=== PATIENT | male | born 1960 | race Caucasian/White ===

== ENCOUNTER → 2019-06-01 | Outpatient (CLI) | payer BC ==
--- NOTE | 2019-06-01 13:14 | CT ---
EXAMINATION TYPE: CT iac wo con DATE OF EXAM: 06/01/2019 COMPARISON: NONE HISTORY: Ear ringing x 10 months. Right-sided hearing loss and left-sided tinnitus. CT DLP: 312 mGycm. Automated Exposure Control for Dose Reduction was Utilized. TECHNIQUE: CT scan of internal auditory canal is performed without contrast, thin cut axial images ar e obtained, coronal reformatted images are also reviewed. FINDINGS: There is density seen in Prussak's space on the right and some blunting of the scutum. The ossicles appear intact. This density is seen on series 8 image 33. The right tympanic membrane is sli ghtly thicker than the left. There is some sclerosis of the right mastoid air cells in comparison to the left with no air-fluid level seen. There is opacification of the inferior right mastoid air cells . The external auditory canals are patent bilaterally. There is no evidence of suspicious surrounding soft tissue density to suggest cholesteatoma on the left. The scutum is preserved on the left. The cochlea and the semicircular canals are symmetric and unremarkable bilaterally. Vestibular aqueduct and internal carotid canal appear unremarkable bilaterally. Temporomandibular joints are maintained bilaterally. Visualized paranasal sinuses are grossly clear. Visualized portion brain parenchyma is felt within normal limits. IMPRESSION: 1. 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 2. Density percent space on the right suggesting a small cholesteatoma with blunting of the scutum. 3. No CT findings in the left internal auditory canal to correspond with the patient's left-sided tin nitus. 4. Thickening of the right tympanic membrane comparison left typically is secondary to chronic inflam matory process or recurrent otitis.
== END | disposition home or self-care (01) ==
LOC: RADCTMAIN 10:53
PROVIDERS: ATTEND Otolaryngology
DX: H73.891 Other specified disorders of tympanic membrane, right ear (principal)
CPT/HCPCS: 70480

== ENCOUNTER 2020-11-05 18:40 | Observation (INO) | payer BC ==
[2020-11-05] MEDS ORDERED: NITROGLYCERIN OINT 1 INCH/GM PACKET TOPICAL STA (19:03)
[2020-11-05] MEDS ORDERED: ASPIRIN 81 MG PO STA (19:03)
--- NOTE | 2020-11-05 19:06 | ED ---
General Adult HPI - General Chief complaint: Chest Pain Stated complaint: Chest Pain Time Seen by Provider: 11/05/20 18:53 Source: patient, RN notes reviewed Mode of arrival: ambulatory Limitations: no limitations - History of Present Illness Initial comments: Patient is a pleasant 60-year-old male presenting to the emergency Department with complaints of chest discomfort. Onset of symptoms was earlier today. Patient has discomfort on the right chest and also some discomfort in the area between the shoulder and neck. Discomfort does increase somewhat with arm movement. No dyspnea. No worsening symptoms with deep breaths. No nausea. No history of similar symptoms previously. - Related Data Home Medications Medication Instructions Recorded Confirmed Levothyroxine Sodium [Synthroid] 112 mcg PO DAILY 11/05/20 11/05/20 Nortriptyline [Pamelor] 50 mg PO HS 11/05/20 11/05/20 Rosuvastatin Calcium [Crestor] 40 mg PO HS 11/05/20 11/05/20 SUMAtriptan SUCCINATE [Imitrex] 100 mg PO BID PRN 11/05/20 11/05/20 Topiramate [Topamax] 50 mg PO BID 11/05/20 11/05/20 Allergies Allergy/AdvReac Type Severity Reaction Status Date / Time No Known Allergies Allergy Verified 11/05/20 20:04 Review of Systems ROS Statement: Those systems with pertinent positive or pertinent negative responses have been documented in the HPI. ROS Other: All systems not noted in ROS Statement are negative. Constitutional: Denies: fever Eyes: Denies: eye pain ENT: Denies: ear pain Respiratory: Denies: cough, dyspnea Cardiovascular: Reports: as per HPI, chest pain Endocrine: Denies: fatigue Gastrointestinal: Denies: abdominal pain Genitourinary: Denies: dysuria Musculoskeletal: Denies: back pain Skin: Denies: rash Neurological: Denies: weakness Past Medical History Past Medical History: Hyperlipidemia, Hypertension History of Any Multi-Drug Resistant Organisms: None Reported Past Surgical History: Orthopedic Surgery Additional Past Surgical History / Comment(s): Left knee replacement Past Psychological History: No Psychological Hx Reported Smoking Status: Former smoker Past Alcohol Use History: None Reported Past Drug Use History: None Reported General Exam Limitations: no limitations General appearance: alert, in no apparent distress Head exam: Present: normocephalic Eye exam: Present: normal appearance Neck exam: Present: normal inspection. Absent: tenderness Respiratory exam: Present: normal lung sounds bilaterally. Absent: chest wall tenderness Cardiovascular Exam: Present: regular rate, normal rhythm Expanded Peripheral pulses: 2+: Radial (R), Radial (L), Posterior Tibialis (R), Posterior Tibialis (L), Dorsalis Pedis (R), Dorsalis Pedis (L) GI/Abdominal exam: Present: soft. Absent: tenderness Extremities exam: Present: normal inspection. Absent: pedal edema, calf tenderness Neurological exam: Present: alert Psychiatric exam: Present: normal affect, normal mood Skin exam: Present: normal color Course Vital Signs 11/05/20 11/05/20 18:44 19:40 Temperature 98.0 F Pulse Rate 87 67 Respiratory 17 18 Rate Blood Pressure 123/80 110/78 O2 Sat by Pulse 97 100 Oximetry EKG Findings - EKG Comments: EKG Findings:: Normal sinus rhythm at a rate of 72. DC 180. QRS 96. QT 372. QTC 407. Normal axis. Incomplete right bundle-branch block. No acute ST change. Medical Decision Making - Medical Decision Making Patient reevaluated and updated. Case was discussed with Dr. champion, who will admit covering hospital call. - Lab Data Result diagrams: 11/05/20 19:40 11/05/20 19:40 Lab Results 11/05/20 11/05/20 11/05/20 Range/Units 19:40 19:40 19:40 WBC 6.8 (3.8-10.6) k/uL RBC 4.90 (4.30-5.90) m/uL Hgb 14.6 (13.0-17.5) gm/dL Hct 44.4 (39.0-53.0) % MCV 90.6 (80.0-100.0) fL MCH 29.7 (25.0-35.0) pg MCHC 32.8 (31.0-37.0) g/dL RDW 12.9 (11.5-15.5) % Plt Count 235 (150-450) k/uL MPV 7.6 Neutrophils % 62 % Lymphocytes % 24 % Monocytes % 9 % Eosinophils % 3 % Basophils % 0 % Neutrophils # 4.2 (1.3-7.7) k/uL Lymphocytes # 1.7 (1.0-4.8) k/uL Monocytes # 0.6 (0-1.0) k/uL Eosinophils # 0.2 (0-0.7) k/uL Basophils # 0.0 (0-0.2) k/uL PT 10.4 (9.0-12.0) sec INR 1.0 (<1.2) APTT 23.9 (22.0-30.0) sec D-Dimer 0.58 (<0.60) mg/L FEU Sodium 141 (137-145) mmol/L Potassium 4.5 (3.5-5.1) mmol/L Chloride 109 H (98-107) mmol/L Carbon Dioxide 24 (22-30) mmol/L Anion Gap 8 mmol/L BUN 24 H (9-20) mg/dL Creatinine 1.23 (0.66-1.25) mg/dL Est GFR (CKD-EPI)AfAm 73 (>60 ml/min/1.73 sqM) Est GFR (CKD-EPI)NonAf 63 (>60 ml/min/1.73 sqM) Glucose 86 (74-99) mg/dL Calcium 9.3 (8.4-10.2) mg/dL Magnesium 2.1 (1.6-2.3) mg/dL Total Bilirubin 0.3 (0.2-1.3) mg/dL AST 27 (17-59) U/L ALT 31 (4-49) U/L Alkaline Phosphatase 58 (38-126) U/L Troponin I (0.000-0.034) ng/mL Total Protein 6.8 (6.3-8.2) g/dL Albumin 4.1 (3.5-5.0) g/dL 11/05/20 Range/Units 19:40 WBC (3.8-10.6) k/uL RBC (4.30-5.90) m/uL Hgb (13.0-17.5) gm/dL Hct (39.0-53.0) % MCV (80.0-100.0) fL MCH (25.0-35.0) pg MCHC (31.0-37.0) g/dL RDW (11.5-15.5) % Plt Count (150-450) k/uL MPV Neutrophils % % Lymphocytes % % Monocytes % % Eosinophils % % Basophils % % Neutrophils # (1.3-7.7) k/uL Lymphocytes # (1.0-4.8) k/uL Monocytes # (0-1.0) k/uL Eosinophils # (0-0.7) k/uL Basophils # (0-0.2) k/uL PT (9.0-12.0) sec INR (<1.2) APTT (22.0-30.0) sec D-Dimer (<0.60) mg/L FEU Sodium (137-145) mmol/L Potassium (3.5-5.1) mmol/L Chloride (98-107) mmol/L Carbon Dioxide (22-30) mmol/L Anion Gap mmol/L BUN (9-20) mg/dL Creatinine (0.66-1.25) mg/dL Est GFR (CKD-EPI)AfAm (>60 ml/min/1.73 sqM) Est GFR (CKD-EPI)NonAf (>60 ml/min/1.73 sqM) Glucose (74-99) mg/dL Calcium (8.4-10.2) mg/dL Magnesium (1.6-2.3) mg/dL Total Bilirubin (0.2-1.3) mg/dL AST (17-59) U/L ALT (4-49) U/L Alkaline Phosphatase (38-126) U/L Troponin I <0.012 (0.000-0.034) ng/mL Total Protein (6.3-8.2) g/dL Albumin (3.5-5.0) g/dL Disposition Clinical Impression: Chest pain Disposition: ADMITTED IP TO THIS [facility] Is patient prescribed a controlled substance at d/c from ED?: No Referrals: Savannah Fitch CRNP [Family Provider] - 1-2 days Decision Time: 20:55
[2020-11-05 19:50] LABS: Basophils % (A) 0 %; Eosinophils # (A) 0.2 k/uL (0-0.7); Eosinophils % (A) 3 %; HCT 44.4 % (39.0-53.0); HGB 14.6 gm/dL (13.0-17.5); Lymphocytes # (A) 1.7 k/uL (1.0-4.8); Lymphocytes % (A) 24 %; MCH 29.7 pg (25.0-35.0); MCHC 32.8 g/dL (31.0-37.0); MCV 90.6 fL (80.0-100.0); Mean Platelet Volume 7.6; Monocytes # (A) 0.6 k/uL (0-1.0); Monocytes % (A) 9 %; Neutrophils # (A) 4.2 k/uL (1.3-7.7); Neutrophils % (A) 62 %; Platelet Count 235 k/uL (150-450); RDW 12.9 % (11.5-15.5); WBC 6.8 k/uL (3.8-10.6)
--- NOTE | 2020-11-05 19:52 | XR ---
EXAMINATION TYPE: XR chest 2V DATE OF EXAM: 11/05/2020 COMPARISON: NONE HISTORY: Chest pain TECHNIQUE: 2 views FINDINGS: Heart is normal. Lungs are clear of infiltrate. There is no heart failure. There are no hil ar masses. Bony thorax is intact. IMPRESSION: No active cardiopulmonary disease. Atheromatous aorta.
[2020-11-05 19:56] LABS: Albumin 4.1 g/dL (3.5-5.0); Calcium 9.3 mg/dL (8.4-10.2); Magnesium 2.1 mg/dL (1.6-2.3); Potassium 4.5 mmol/L (3.5-5.1); Total Bilirubin 0.3 mg/dL (0.2-1.3); Total Protein 6.8 g/dL (6.3-8.2)
[2020-11-05 20:10] LABS: D-Dimer 0.58 mg/L FEU (<0.60); Partial Thromboplastin Time 23.9 sec (22.0-30.0); Prothrombin Time 10.4 sec (9.0-12.0)
[2020-11-05] MEDS ORDERED: NITROGLYCERIN SL TABS 0.4 MG TAB SUBLINGUAL PRN (20:56)
--- NOTE | 2020-11-05 22:05 | P.HPIM ---
History of Present Illness H&P Date: 11/05/20 Patient is a 60 -year-old male with a PMH of hyperlipidemia and hypothyroidism who presented to the emergency room with complaints of chest pain. The patient reports that he was in his usual state of health until is morning when he suddenly developed a right-sided sharp and pressure-like discomfort. The pain was somewhat intermittent, exacerbated with right arm movements or activity, starting in the neck and the right chest with radiation to the substernal region, 8 out of 10 at maximum intensity, and relieved by rest. The patient denied associated shortness of breath, palpitations, nausea, vomiting, diaphoresis, dizziness. He also denied prolonged immobilization, recent travel, leg pain, or leg swelling. He reported at the time of interview that laying perfectly still the pain is a 1 out of 10 and is brought on again with any right arm movement. He denied additional complaints. Denied abdominal pain, fever, chills, cough, diarrhea. In the emergency room, laboratory evaluation revealed a troponin less than 0.012, EKG revealing normal sinus rhythm at 72 bpm with an incomplete right bundle branch block, with chest x-ray showing an atheromatous aorta. Review of Systems Pertinent positives and negatives as discussed in HPI, a complete review of sys tems was performed and all other systems are negative. Past Medical History Past Medical History: Hyperlipidemia, Hypertension History of Any Multi-Drug Resistant Organisms: None Reported Past Surgical History: Orthopedic Surgery Additional Past Surgical History / Comment(s): Left knee replacement Past Psychological History: No Psychological Hx Reported Smoking Status: Former smoker Past Alcohol Use History: None Reported Past Drug Use History: None Reported Medications and Allergies Home Medications Medication Instructions Recorded Confirmed Type Levothyroxine Sodium [Synthroid] 112 mcg PO DAILY 11/05/20 11/05/20 History Nortriptyline [Pamelor] 50 mg PO HS 11/05/20 11/05/20 History Rosuvastatin Calcium [Crestor] 40 mg PO HS 11/05/20 11/05/20 History SUMAtriptan SUCCINATE [Imitrex] 100 mg PO BID PRN 11/05/20 11/05/20 History Topiramate [Topamax] 50 mg PO BID 11/05/20 11/05/20 History Allergies Allergy/AdvReac Type Severity Reaction Status Date / Time No Known Allergies Allergy Verified 11/05/20 20:04 Physical Exam Vitals: Vital Signs Temp Pulse Resp BP Pulse Ox 11/05/20 19:40 67 18 110/78 100 11/05/20 18:44 98.0 F 87 17 123/80 97 Intake and Output 11/05/20 11/05/20 11/05/20 06:59 14:59 22:59 Other: Weight 108.862 kg General: non toxic, no distress, appears at stated age, normal weight Derm: no unusual rashes/lesions no unusual ecchymoses, warm, dry Head: atraumatic, normocephalic, symmetric Eyes: EOMI, no lid lag, anicteric sclera, pupils equal round reactive to light ENT: Nose and ears atraumatic, no thrush, no pharyngeal erythema Neck: No thyromegaly, no cervical lymphadenopathy, trachea midline, supple Mouth: no lip lesion, mucus membranes moist Cardiovascular: S1S2 reg, no murmur, positive posterior tibial pulse bilateral, no edema, capillary refill less than 2 seconds, no chest wall tenderness on palpation Lungs: CTA bilateral, no rhonchi, no rales , no accessory muscle use Abdominal: soft, nontender to palpation, no guarding, no appreciable organomegaly, normal bowel sounds Ext: no gross muscle atrophy, muscle strength 5 out of 5 in all 4 extremities grossly, no contractures, Neuro: CN II-XI grossly intact, light touch intact all 4 extremities, finger to nose within normal limits, Psych: Alert, oriented, appropriate affect Results CBC & Chem 7: 11/05/20 19:40 11/05/20 19:40 Labs: Abnormal Lab Results - Last 24 Hours (Table) 11/05/20 Range/Units 19:40 Chloride 109 H (98-107) mmol/L BUN 24 H (9-20) mg/dL Assessment and Plan Plan: Atypical chest pain with typical features -Cardiac consult -Trend troponin -Cardiac monitoring -Continue with aspirin Chronic conditions: Hypothyroidism, hyperlipidemia -Continue with home meds DVT prophylaxis -Heparin subq The patient is admitted with an anticipated less than 2 midnight stay for evaluation of chest pain CODE STATUS: full code Discussed with: patient Anticipated discharge date: in am Anticipated discharge place: home A total of 35 minutes was spent on the care of this complex patient more than 50% of the time was spent in counseling and care coordination.
[2020-11-05] MEDS: NITROGLYCERIN OINT 1 INCH/GM PACKET TOPICAL SCH (23:12)
[2020-11-06] MEDS ORDERED: SUMAtriptan succinate 50 MG TAB PO PRN (00:52)
[2020-11-06 03:14] LABS: Cholesterol 135 mg/dL (<200); HDL Cholesterol 36 mg/dL (40-60); LDL Cholesterol,Calculated 75 mg/dL (0-99); Triglycerides 122 mg/dL (<150)
[2020-11-06] MEDS: NITROGLYCERIN OINT 1 INCH/GM PACKET TOPICAL SCH (05:32)
[2020-11-06] MEDS ORDERED: LEVOTHYROXINE 112 MCG TAB PO SCH (06:30)
[2020-11-06] MEDS ORDERED: HEPARIN SODIUM,PORCINE/PF 5,000 UNIT/0.5 ML SYRINGE SQ SCH (08:00)
--- NOTE | 2020-11-06 08:25 | CONS ---
CONSULTATION Mr. Mcdonough is a 60-year-old male with a history of hyperlipidemia, who presented to the emergency room with symptoms of right-sided chest discomfort and right shoulder discomfort. The discomfort started yesterday and persisted throughout the day. It has some reproducible pattern by certain position of the shoulder. He had no significant associated dyspnea and no exertional pattern to the symptoms. He had no dizziness or palpitation. The patient has no prior cardiac history. He is average in his exercise tolerance and has no symptoms. He has occasional peripheral edema, but no PND nor orthopnea. His coronary risk factors are remarkable for hyperlipidemia. He is nondiabetic. No history of documented hypertension. He has stopped smoking over 20 years ago. MEDICATIONS: His medications at home included Topamax, Imitrex, Crestor 40 mg daily, Pamelor 50 mg daily and levothyroxine. REVIEW OF SYSTEMS: RESPIRATORY SYSTEM: He has no documented history of asthma, emphysema or bronchitis. GI SYSTEM: No recent GI bleeding. No peptic ulcer disease. SYSTEM: No dysuria or hematuria. NERVOUS SYSTEM: No stroke or seizure. PHYSICAL EXAMINATION: A 60-year-old male, alert, oriented, in no apparent distress. Blood pressure 125/80 with the heart rate in the 60s. HEAD: Normocephalic. EYES: Sclerae nonicteric. NECK: Good carotid upstroke. No bruit. No jugular venous distention. LUNGS: Clear to auscultation. HEART: Regular rate and rhythm. S1, S2. No S3. No S4. No murmur or rub. ABDOMEN: Soft, nontender. Positive bowel sounds. No organomegaly. EXTREMITIES: No edema. Intact distal pulses. Reproducible pain in the right shoulder by movement of the shoulder. LAB DATA: Lab data revealed a troponin of less than 0.012 for 3 samples. Cholesterol 135, LDL of 75. BUN and creatinine 24 and 1.23. Hemoglobin of 14.6. His EKG reveals sinus mechanism, normal axis with RSR prime. His chest x-ray shows no acute infiltrate with reported atheromatous aorta. IMPRESSION: 1. Right-sided chest discomfort atypical for ischemic heart disease probably noncardiac, most likely musculoskeletal. 2. Hyperlipidemia. 3. Hypothyroidism. RECOMMENDATION: I would recommend to obtain an echocardiogram with Doppler as well as stress echocardiogram and if there is no evidence of significant abnormality, I would expect he should be able to be discharged home. Thank you for this consult. We will follow with you. MMODL / IJN: [id number] /
[2020-11-06] MEDS ORDERED: ASPIRIN 81 MG PO SCH (09:00)
[2020-11-06] MEDS ORDERED: TOPIRAMATE 25 MG TAB PO SCH (09:00)
[2020-11-06] MEDS ORDERED: ASPIRIN 325 MG TAB PO SCH (09:00)
[2020-11-06 09:32] VITALS: BP 124/86; PULSE 70; RESP 18; TEMP 97.9
--- NOTE | 2020-11-06 12:56 | ECHOF ---
Referral Reason:cp MEASUREMENTS -------- HEIGHT: 190.5 cm WEIGHT: 108.9 kg BP: 125/83 RVIDd: 3.3 cm (< 3.3) IVSd: 1.4 cm (0.6 - 1.1) LVIDd: 4.3 cm (3.9 - 5.3) LVPWd: 1.2 cm (0.6 - 1.1) IVSs: 1.7 cm LVIDs: 3.0 cm LVPWs: 1.6 cm LAESV Index (A-L): 28.86 ml/m Ao Diam: 3.7 cm (2.0 - 3.7) AV Cusp: 2.3 cm (1.5 - 2.6) MV EXCURSION: 17.297 mm (> 18.000) MV EF SLOPE: 52 mm/s (70 - 150) EPSS: 0.5 cm MV E Khalif: 0.75 m/s MV DecT: 233 ms MV A Khalif: 1.11 m/s MV E/A Ratio: 0.68 RAP: 5.00 mmHg RVSP: 32.07 mmHg FINDINGS -------- Sinus rhythm. This was a technically adequate study. The left ventricular size is normal. There is mild concentric left ventricular hypertrophy. Overa ll left ventricular systolic function is normal with, an EF between 55 - 60 %. The diastolic fillin g pattern is normal for the age of the patient 11.12. The right ventricle is mildly enlarged. Normal LA size by volume 22+/-6 ml/m2. The right atrial size is normal. Interatrial and interventricular septum intact. The aortic valve is trileaflet, and appears structurally normal. No aortic stenosis or regurgitation. The mitral valve is normal. There is trace mitral regurgitation. The tricuspid valve appears structurally normal. Mild tricuspid regurgitation present. Right vent ricular systolic pressure is normal at < 35 mmHg. The right ventricular systolic pressure, as measu red by Doppler, is 32.07mmHg. There is no pulmonic regurgitation present. The aortic root size is normal. IVC Not well visulized. There is no pericardial effusion. CONCLUSIONS -------- 1. There is mild concentric left ventricular hypertrophy. 2. Overall left ventricular systolic function is normal with, an EF between 55 - 60 %. 3. The diastolic filling pattern is normal for the age of the patient 11.12 4. The right ventricle is mildly enlarged. 5. The aortic valve is trileaflet, and appears structurally normal. No aortic stenosis or regurgitati on. 6. There is trace mitral regurgitation. 7. Mild tricuspid regurgitation present. 8. There is no pericardial effusion. LAB INSTRUCTOR: Ronna Schafer RDCS
--- NOTE | 2020-11-06 13:19 | ECHOS ---
STRESS ECHOCARDIOGRAM INDICATIONS: Chest pain. MEDICATIONS: BASELINE HEART RATE: 71 BASELINE BLOOD PRESSURE: 129/92 MAXIMUM HEART RATE: 161 MAXIMUM BLOOD PRESSURE: 183/106 85% MPHR: 134 100% MPHR: 158 METS: 11.5 MAXIMUM STAGE REACHED: IV TOTAL EXERCISE TIME: 10 minutes CLINICAL INFORMATION: Baseline rhythm is sinus mechanism, rate 71, borderline left axis deviation, normal intervals. Baseline blood pressure 129/92 mmHg. Patient exercised on Brennan protocol for 10 minutes reaching peak rate 161 beats per minute which is equal to 102% maximum predicted heart rate. Peak blood pressure 183/106 mmHg. Test was terminated secondary to fatigue. There was no chest pain. Electrocardiograph monitoring revealed no evidence of diagnostic ischemic ST-T deviation. Rare PVCs were noted. Baseline echocardiogram revealed normal wall motion. At peak exercise, there was normal wall motion augmentation with no hypokinesis or dyskinesis. CONCLUSION: 1. Good exercise tolerance with normal electrocardiograph response to exercise. 2. Normal stress echocardiogram with no evidence of stress-induced ischemia. MMODL / IJN: [id number] /
--- NOTE | 2020-11-06 15:59 | P.DS ---
Providers Date of admission: 11/05/20 20:56 Expected date of discharge: 11/06/20 Attending physician: Liset Marina MD Consults: 11/05/20 20:56 Consult Physician Urgent Consulting Provider: Cash Anguiano Consult Reason/Comments: cp Do you want consulting provider notified?: Yes Primary care physician: [facility] Course: Patient is a 60 -year-old male with a PMH of hyperlipidemia and hypothyroidism who presented to the emergency room with complaints of chest pain. The patient reports that he was in his usual state of health until is morning when he suddenly developed a right-sided sharp and pressure-like discomfort. The pain was somewhat intermittent, exacerbated with right arm movements or activity, starting in the neck and the right chest with radiation to the substernal region, 8 out of 10 at maximum intensity, and relieved by rest. The patient denied associated shortness of breath, palpitations, nausea, vomiting, diaphoresis, dizziness. He also denied prolonged immobilization, recent travel, leg pain, or leg swelling. He reported at the time of interview that laying perfectly still the pain is a 1 out of 10 and is brought on again with any right arm movement. He denied additional complaints. Denied abdominal pain, fever, chills, cough, diarrhea. In the emergency room, laboratory evaluation revealed a troponin less than 0.012, EKG revealing normal sinus rhythm at 72 bpm with an incomplete right bundle branch block, with chest x-ray showing an atheromatous aorta. Atypical chest pain with typical features -Cardiac consult recommended echo stress test which was done and was negative -Trend troponins were negative -Cardiac monitoring did not have arrhythmic events -ASA was not prescribed on d/c due to no evidence of CAD Chronic conditions: Hypothyroidism, hyperlipidemia -Continued with home meds Assessment: Gen: awake, alert HEENT: normocephalic, atraumatic, good hearing acuity, moist mucous membranes Resp: good air exchange, breathing comfortably with no accessory muscle use, clear to auscultation bilaterally without wheezes or crackles CVS: good distal perfusion x 4, regular rate and rhythm without murmurs GI: soft, NTTP, ND, appropriate bowel sounds : no SPT, no CVAT, wolff catheter not present MSK: no pitting edema, no clubbing Neuro: non-focal, moving all extremities Psych: cooperative, euthymic mood Patient Condition at Discharge: Good Plan - Discharge Summary Discharge Rx Participant: Yes New Discharge Prescriptions: Continue Nortriptyline [Pamelor] 50 mg PO HS Levothyroxine Sodium [Synthroid] 112 mcg PO DAILY SUMAtriptan SUCCINATE [Imitrex] 100 mg PO BID PRN PRN Reason: Migraine Headache Rosuvastatin Calcium [Crestor] 40 mg PO HS Topiramate [Topamax] 50 mg PO BID Discharge Medication List Levothyroxine Sodium [Synthroid] 112 mcg PO DAILY 11/05/20 [History] Nortriptyline [Pamelor] 50 mg PO HS 11/05/20 [History] Rosuvastatin Calcium [Crestor] 40 mg PO HS 11/05/20 [History] SUMAtriptan SUCCINATE [Imitrex] 100 mg PO BID PRN 11/05/20 [History] Topiramate [Topamax] 50 mg PO BID 11/05/20 [History] Follow up Appointment(s)/Referral(s): Savannah Fitch CRNP [Family Provider] - 1-2 days Discharge Disposition: HOME SELF-CARE
[2020-11-06] MEDS ORDERED: NORTRIPTYLINE 25 MG CAP PO SCH (21:00)
[2020-11-06] MEDS ORDERED: ATORVASTATIN 80 MG TAB PO SCH (21:00)
== END 2020-11-06 13:50 | disposition home or self-care (01) ==
LOC: EC 18:40 → 6NMEDSUR 20:56
PROVIDERS: ADMIT Internal Medicine; ATTEND Internal Medicine
DX: R07.89 Other chest pain (principal); E78.5 Hyperlipidemia, unspecified; I70.0 Atherosclerosis of aorta; E03.9 Hypothyroidism, unspecified; I45.10 Unspecified right bundle-branch block; M25.511 Pain in right shoulder; Z79.890 Hormone replacement therapy; Z79.899 Other long term (current) drug therapy; Z96.652 Presence of left artificial knee joint; Z87.891 Personal history of nicotine dependence
CPT/HCPCS: 96372; 93005 ×2; 99285; 36415; 93306; 93351; 85379; 80061; 80053; 83735; 84484 ×2; 85025; 85610; 85730; 87636; 71046; G0378 ×2; J1644

== ENCOUNTER 2022-05-28 11:15 | Emergency (ER) | payer BC ==
[2022-05-28 11:22] VITALS: RESP 18
[2022-05-28] MEDS ORDERED: SODIUM CHLORIDE 0.9% 500 ML 500 ML IV STA (12:21)
[2022-05-28 12:45] LABS: Basophils # (A) 0.1 k/uL (0-0.2); Basophils % (A) 1 %; Eosinophils # (A) 0.2 k/uL (0-0.7); Eosinophils % (A) 2 %; HCT 44.8 % (39.0-53.0); HGB 15.6 gm/dL (13.0-17.5); Lymphocytes # (A) 1.6 k/uL (1.0-4.8); Lymphocytes % (A) 26 %; MCHC 34.7 g/dL (31.0-37.0); MCV 89.3 fL (80.0-100.0); Mean Platelet Volume 8.3; Monocytes # (A) 0.5 k/uL (0-1.0); Monocytes % (A) 8 %; Neutrophils # (A) 3.8 k/uL (1.3-7.7); Neutrophils % (A) 62 %; Platelet Count 252 k/uL (150-450); RBC 5.02 m/uL (4.30-5.90); RDW 12.2 % (11.5-15.5); WBC 6.1 k/uL (3.8-10.6)
[2022-05-28 12:54] LABS: Albumin 4.6 g/dL (3.5-5.0); Total Bilirubin 0.8 mg/dL (0.2-1.3); Total Protein 6.9 g/dL (6.3-8.2)
--- NOTE | 2022-05-28 12:54 | ED ---
General Adult HPI - General Chief complaint: Back Pain/Injury Stated complaint: poss heart attack Time Seen by Provider: 05/28/22 11:25 Source: patient, family, RN notes reviewed, old records reviewed Mode of arrival: wheelchair - History of Present Illness Initial comments: This is a 62-year-old male who presents to the emergency department complaining of upper right thoracic back pain. Patient states his been ongoing since at least Tuesday. Patient states he was in the ER on Tuesday for headache and a CAT scan them and they did an angiogram of his head neck and they noted his aorta to be large and they measured 4.7 cm. Patient states she's going to follow-up with cardiothoracic surgeon for that. Patient states because he's got back pain he is worried that there is something going on with his aorta so that is the reason he came in. Patient states prior to one states he was dragging a fairly large tear out of the [place] and he thinks that's how he strained his back but because of this new diagnosis of a sending aortic aneurysm he is coming here to be sure that his aneurysm is not dissecting. Patient denies any chest pain. Patient denies any difficulty breathing first breath per patient denies any fever chills or cough per patient denies any abdominal pain. Patient denies any neurologic deficit whatsoever. - Related Data Home Medications Medication Instructions Recorded Confirmed Levothyroxine Sodium [Synthroid] 112 mcg PO DAILY 11/05/20 05/28/22 Nortriptyline [Pamelor] 50 mg PO HS 11/05/20 05/28/22 Rosuvastatin Calcium [Crestor] 40 mg PO HS 11/05/20 05/28/22 Propranolol HCl [Propranolol HCl 80 mg PO HS 05/28/22 05/28/22 ER] Rimegepant Sulfate [Nurtec Odt] 75 mg PO Q12H PRN 05/28/22 05/28/22 Previous Rx's Medication Instructions Recorded Cyclobenzaprine [Flexeril] 10 mg PO TID #20 tab 05/28/22 Allergies Allergy/AdvReac Type Severity Reaction Status Date / Time No Known Allergies Allergy Verified 05/28/22 13:52 Review of Systems ROS Statement: Those systems with pertinent positive or pertinent negative responses have been documented in the HPI. ROS Other: All systems not noted in ROS Statement are negative. Past Medical History Past Medical History: Hyperlipidemia, Hypertension History of Any Multi-Drug Resistant Organisms: None Reported Past Surgical History: Orthopedic Surgery Additional Past Surgical History / Comment(s): Left knee replacement Past Psychological History: No Psychological Hx Reported Smoking Status: Former smoker Past Alcohol Use History: None Reported Past Drug Use History: None Reported General Exam - General Exam Comments Initial Comments: GENERAL: Patient is well-developed and well-nourished. Patient is nontoxic and well-hydrated and is in mild distress. ENT: Neck is soft and supple. No significant lymphadenopathy is noted. Oropharynx is clear. Moist mucous membranes. Neck has full range of motion without eliciting any pain. EYES: The sclera were anicteric and conjunctiva were pink and moist. Extraocular movements were intact and pupils were equal round and reactive to light. Eyelids were unremarkable. PULMONARY: Unlabored respirations. Good breath sounds bilaterally. No audible rales rhonchi or wheezing was noted. CARDIOVASCULAR: There is a regular rate and rhythm without any murmurs gallops or rubs. ABDOMEN: Soft and nontender with normal bowel sounds. SKIN: Skin is clear with no lesions or rashes and otherwise unremarkable. NEUROLOGIC: Patient is alert and oriented x3. Cranial nerves II through XII are grossly intact. Motor and sensory are also intact. Normal speech, volume and content. Symmetrical smile. MUSCULOSKELETAL: Normal extremities with adequate strength and full range of motion. Patient has reproducible thoracic back pain just medial and inferior to the scapula LYMPHATICS: No significant lymphadenopathy is noted PSYCHIATRIC: Normal psychiatric evaluation. Course Vital Signs 05/28/22 05/28/22 05/28/22 11:19 11:55 11:59 Temperature 97.3 F L Pulse Rate 57 L 62 59 L Respiratory 18 18 Rate Blood Pressure 144/98 128/96 128/96 O2 Sat by Pulse 98 Oximetry Medical Decision Making - Medical Decision Making EKG shows sinus bradycardia 57 bpm AK interval 189 QRSs 105 Q-T intervals 393 QTC is 388. Patient's EKG shows no ST segment elevation or depression. I read the CT angiogram of the aorta. It shows no dissection. I went back in and I explained to the patient the results the CAT scan and that I thought his back pain today with muscle skeletal. - Lab Data Result diagrams: 05/28/22 12:31 05/28/22 12:31 Lab Results 05/28/22 05/28/22 05/28/22 Range/Units 12:31 12:31 12:31 WBC 6.1 (3.8-10.6) k/uL RBC 5.02 (4.30-5.90) m/uL Hgb 15.6 (13.0-17.5) gm/dL Hct 44.8 (39.0-53.0) % MCV 89.3 (80.0-100.0) fL MCH 31.0 (25.0-35.0) pg MCHC 34.7 (31.0-37.0) g/dL RDW 12.2 (11.5-15.5) % Plt Count 252 (150-450) k/uL MPV 8.3 Neutrophils % 62 % Lymphocytes % 26 % Monocytes % 8 % Eosinophils % 2 % Basophils % 1 % Neutrophils # 3.8 (1.3-7.7) k/uL Lymphocytes # 1.6 (1.0-4.8) k/uL Monocytes # 0.5 (0-1.0) k/uL Eosinophils # 0.2 (0-0.7) k/uL Basophils # 0.1 (0-0.2) k/uL PT 10.7 (9.0-12.0) sec INR 1.0 (<1.2) APTT 24.9 (22.0-30.0) sec Sodium 135 L (137-145) mmol/L Potassium 5.0 (3.5-5.1) mmol/L Chloride 103 (98-107) mmol/L Carbon Dioxide 26 (22-30) mmol/L Anion Gap 6 mmol/L BUN 17 (9-20) mg/dL Creatinine 1.23 (0.66-1.25) mg/dL Est GFR (CKD-EPI)AfAm 72 (>60 ml/min/1.73 sqM) Est GFR (CKD-EPI)NonAf 62 (>60 ml/min/1.73 sqM) Glucose 88 (74-99) mg/dL Calcium 9.0 (8.4-10.2) mg/dL Magnesium 2.0 (1.6-2.3) mg/dL Total Bilirubin 0.8 (0.2-1.3) mg/dL AST 27 (17-59) U/L ALT 27 (4-49) U/L Alkaline Phosphatase 66 (38-126) U/L Troponin I (0.000-0.034) ng/mL Total Protein 6.9 (6.3-8.2) g/dL Albumin 4.6 (3.5-5.0) g/dL 05/28/22 Range/Units 12:31 WBC (3.8-10.6) k/uL RBC (4.30-5.90) m/uL Hgb (13.0-17.5) gm/dL Hct (39.0-53.0) % MCV (80.0-100.0) fL MCH (25.0-35.0) pg MCHC (31.0-37.0) g/dL RDW (11.5-15.5) % Plt Count (150-450) k/uL MPV Neutrophils % % Lymphocytes % % Monocytes % % Eosinophils % % Basophils % % Neutrophils # (1.3-7.7) k/uL Lymphocytes # (1.0-4.8) k/uL Monocytes # (0-1.0) k/uL Eosinophils # (0-0.7) k/uL Basophils # (0-0.2) k/uL PT (9.0-12.0) sec INR (<1.2) APTT (22.0-30.0) sec Sodium (137-145) mmol/L Potassium (3.5-5.1) mmol/L Chloride (98-107) mmol/L Carbon Dioxide (22-30) mmol/L Anion Gap mmol/L BUN (9-20) mg/dL Creatinine (0.66-1.25) mg/dL Est GFR (CKD-EPI)AfAm (>60 ml/min/1.73 sqM) Est GFR (CKD-EPI)NonAf (>60 ml/min/1.73 sqM) Glucose (74-99) mg/dL Calcium (8.4-10.2) mg/dL Magnesium (1.6-2.3) mg/dL Total Bilirubin (0.2-1.3) mg/dL AST (17-59) U/L ALT (4-49) U/L Alkaline Phosphatase (38-126) U/L Troponin I <0.012 (0.000-0.034) ng/mL Total Protein (6.3-8.2) g/dL Albumin (3.5-5.0) g/dL Disposition Clinical Impression: Thoracic back pain Disposition: HOME SELF-CARE Instructions (If sedation given, give patient instructions): Thoracic Pain (ED) Additional Instructions: Patient should take Flexeril and Motrin. Prescriptions: Cyclobenzaprine [Flexeril] 10 mg PO TID #20 tab Is patient prescribed a controlled substance at d/c from ED?: No Referrals: Markus Gutierrez MD [Primary Care Provider] - 1-2 days Time of Disposition: 14:37
[2022-05-28 13:00] LABS: Partial Thromboplastin Time 24.9 sec (22.0-30.0); Prothrombin Time 10.7 sec (9.0-12.0)
--- NOTE | 2022-05-28 14:33 | CT ---
EXAMINATION TYPE: CT angio thor/abd pel aorta DATE OF EXAM: 05/28/2022 COMPARISON: None HISTORY: Aortic aneurysm and back pain CT DLP: 2310.8 mGycm CONTRAST: CTA thoracic and abdominal aorta with 3-D reconstruction is performed and without and with IV Contras t, patient injected with 100 mL of Isovue 370. Contrast CTA of the thoracic and abdominal aorta was performed from the lung apex through the base of the pelvis. 3-D reconstruction imaging obtained at a separate workstation. CT Chest: THORACIC AORTA: Ascending thoracic aortic aneurysm measuring 4.6 cm AP dimension.No dissection or me diastinal hematoma. Mild atheromatous changes are seen. LUNGS: The lungs are clear and free of infiltrate or atelectasis. No pulmonary nodule or mass is det ected. No pleural effusion or CT evidence of interstitial lung disease. MEDIASTINUM: The heart is not enlarged. No evidence for mediastinal mass or adenopathy. HILAR STRUCTURES: No evidence for mass. No hilar adenopathy is appreciated. OTHER: No significant abnormality. CONTRAST CT ABDOMEN AND PELVIS ABDOMINAL AORTA: No evidence for abdominal aortic aneurysm. No dissection. Iliac vessels are symmet brandi and patent. LIVER/GB- No significant abnormality is seen. PANCREAS- No significant abnormality is seen. SPLEEN- No significant abnormality is seen. ADRENALS- No significant abnormality is seen. KIDNEYS/BLADDER-simple cyst right kidney. BOWEL- No Significant abnormality GENITAL ORGANS: No gross abnormality seen. LYMPH NODES- No greater than 1cm abdominal or pelvic lymph nodes are appreciated. OSSEOUS STRUCTURES- No significant abnormality is seen. OTHER- No significant abnormality is seen. IMPRESSION- 1. Ascending thoracic aortic aneurysm. No evidence for dissection or periaortic collection.
[2022-05-28] MEDS ORDERED: KETOROLAC 15 MG/ML 1 ML VIAL IM STA (14:37)
[2022-05-28 18:39] VITALS: BP 132/78; PULSE 88; TEMP 98.2
[2022-05-29] MEDS ORDERED: LEVOTHYROXINE 112 MCG TAB PO SCH (06:30)
== END 2022-05-28 14:55 | disposition home or self-care (01) ==
LOC: EC 11:15
DX: M54.6 Pain in thoracic spine (principal); I71.21 Aneurysm of the ascending aorta, without rupture; E78.5 Hyperlipidemia, unspecified; I10 Essential (primary) hypertension; Z87.891 Personal history of nicotine dependence; Z79.02 Long term (current) use of antithrombotics/antiplatelets
CPT/HCPCS: 36415; 93005; 80053; 83735; 84484; 85025; 85610; 85730; 71275; 74174; 99284; 96374; J1885; Q9967